=== PATIENT | female | born 1975 | race Caucasian/White ===

== ENCOUNTER 2018-05-05 09:30 | Inpatient (IN) | payer OTHER ==
[~2018-05-05] VITALS: Ht 165.1 cm; Wt 122.9 kg
[2018-05-05] MEDS ORDERED: SYNTHROID75 MCG PO (10:10)
[2018-05-13] MEDS ORDERED: ULTRACET PO (08:09)
[2018-05-13] MEDS ORDERED: MOTRIN IB200 MG PO (08:09)
== END 2018-05-13 10:00 | DRG 743 ==
LOC: O/R 05-12 06:00 → SURH 05-12 09:30 → OB/GYN 05-12 11:12
PROVIDERS: ADMIT Obstetrics & Gynecology Gynecology
PROC: 0UT7FZZ Resection of Bilateral Fallopian Tubes, Via Natural or Artificial Opening With Percutaneous Endoscopic Assistance (ICD-10-PCS; 2018-05-12)
PROC: 0UT9FZZ Resection of Uterus, Via Natural or Artificial Opening With Percutaneous Endoscopic Assistance (ICD-10-PCS; principal; 2018-05-12 09:30)
DX: N80.0 Endometriosis of uterus (principal); N72 Inflammatory disease of cervix uteri; N83.8 Other noninflammatory disorders of ovary, fallopian tube and broad ligament; E03.8 Other specified hypothyroidism